=== PATIENT | male | born 1970 | race American Indian/Alaskan Native ===

== ENCOUNTER 2021-06-08 11:09 | Emergency (ER) | payer SELFPAY ==
[2021-06-08] MEDS ORDERED: ONDANSETRON 4 MG ODT TAB PO ONE (17:12)
--- NOTE | 2021-06-08 17:17 | Emergency Department Report ---
HPI - General Chief Complaint: Overdose Time Seen by Provider: 06/08/21 17:01 - [facility] HPI: Room 24 The patient is a 50-year-old male present with a chief complaint of overdose. Patient is is amnestic for the event but states he remembers being in the bat hroom of his own home. Patient was found unresponsive by another person in the house and 9 1 was called. Per EMS the patient had a GCS of 3 and was known to take heroin in the past. Patient was given Narcan and awakened and began yelling. Patient is currently calm and only complains of some nausea. ED Past Medical Hx - Past Medical History Previous Medical History?: No - Surgical History Past Surgical History?: No - Family History Family history: no significant - Social History Smoking Status: Current Every Day Smoker (1/3 pack/day) Substance Use Type: Cocaine - Medications Home Medications: Home Medications Medication Instructions Recorded Confirmed Last Taken Type Divalproex Dr [DepaKOTE DR] 125 mg PO BID #60 tablet 06/11/21 Unknown Rx Escitalopram [Lexapro] 5 mg PO QDAY #30 06/11/21 Unknown Rx OLANZapine [Olanzapine] 5 mg PO DAILY #30 06/11/21 Unknown Rx hydrOXYzine HCL [Atarax] 25 mg PO BID PRN #60 tablet 06/11/21 Unknown Rx traZODone [Desyrel] 50 mg PO QHS #30 tab 06/11/21 Unknown Rx ED Review of Systems ROS: Stated complaint: OVERDOSE Other details as noted in HPI Constitutional: no symptoms reported Eyes: denies: eye pain ENT: denies: throat pain Respiratory: no symptoms reported Cardiovascular: denies: chest pain Endocrine: no symptoms reported Gastrointestinal: nausea Genitourinary: denies: dysuria Musculoskeletal: denies: back pain Physical Exam - Physical Exam Vital Signs: Vital Signs 06/08/21 11:13 Pulse Rate 77 Blood Pressure 114/82 [Right] Physical Exam: GENERAL: The patient is well-developed well-nourished male lying on stretcher not appearing to be in acute distress. [] HEENT: Normocephalic. Atraumatic. Extraocular motions are intact. Patient has moist mucous membranes. NECK: Supple. Trachea midline CHEST/LUNGS: Clear to auscultation. There is no respiratory distress noted. HEART/CARDIOVASCULAR: Regular. There is no tachycardia. There is no gallop rub or murmur. ABDOMEN: Abdomen is soft, nontender. Patient has normal bowel sounds. There is no abdominal distention. SKIN: There is no rash. There is no edema. There is no diaphoresis. NEURO: The patient is awake, alert, and oriented. The patient is cooperative. The patient has no focal neurologic deficits. The patient has normal speech. GCS 15 MUSCULOSKELETAL: There is no evidence of acute injury. ED Course Vital Signs 06/08/21 11:13 Pulse Rate 77 Blood Pressure 114/82 [Right] ED Medical Decision Making - Lab Data Result diagrams: 06/08/21 17:24 06/08/21 17:24 - Differential Diagnosis Opiate overdose Critical care attestation.: If time is entered above; I have spent that time in minutes in the direct care of this critically ill patient, excluding procedure time. ED Disposition Clinical Impression: Heroin overdose Disposition: 01 HOME / SELF CARE / HOMELESS Is pt being admited?: No Does the pt Need Aspirin: No Condition: Stable Instructions: Intentional Drug Overdose Additional Instructions: Professional and Agency Contacts To help Resolve Crises(18/11) [place] Crisis Line: Suicide Prevention Line: Crisis Text Line: Text START to 298090 Emergency: 911 Outpatient COMMUNITY Behavioral Health Resources: [facility]: [facility] [address] [place], [place] [address] [facility] [address] [place] [address] [facility] - [address] [place] [address] Friday thru Friday - 8am - 5pm [place]: [facility] Address: [address], [place] [address] [facility] Address: [address] [place] [address] Friday thru Friday- 7am-2pm [facility] Address: [address] [place] [address] Friday thru Friday: 8:30AM-5PM In case of an emergency, please contact the following numbers: [place] Crisis and Access Line: Number: Crisis Text Line: (Text START) Number: 531633 Suicide Prevention Line: Number: Emergency Number: 911 SUBSTANCE ABUSE PROGRAMS: [facility]: Location: [place], [place] [facility] Address: [address] [place] [address] [facility]: Address: [address] [place] [address] [facility]: Address: [address] [place] [address] [facility]: Address: [address] [place] [address] [facility] Address: [address] [place] [id number]. Please contact above numbers to attempt placement into free based program. Medicaid Programs: [facility]: Address: [address] [place] [address] [facility]: Address: [address] [place] [address] OUTPATIENT MENTAL HEALTH RESOURCES [facility], [address] [place] [address] [facility] Kassandra Mcdowell MD: [address] [facility] [address] [place], [place] [id number] [facility]: [address] [place], [place] [id number] [employer] [facility] [place], [place] [id number] [phone] [facility]: [address] [facility] [address] [place], [place] [id number] [facility]: [address] [facility] Kian. [facility] [id number] [facility]: [address] [place] [address] Nathan [place] MD: [address] [facility] [place] [address] [facility]: [address] [place] [place] [address] [phone] [place] CRISIS AND ACCESS LINE: * Prescriptions: hydrOXYzine HCL [Atarax] 25 mg PO BID PRN #60 tablet PRN Reason: Itching Divalproex Dr [DepaKOTE DR] 125 mg PO BID #60 tablet traZODone [Desyrel] 50 mg PO QHS #30 tab Escitalopram [Lexapro] 5 mg PO QDAY #30 OLANZapine [Olanzapine] 5 mg PO DAILY #30 Referrals: PRIMARY CARE, [Primary Care Provider] - 3-5 Days
[2021-06-08 18:07] LABS: Creatine Kinase MB 11.4 ng/mL (0.0-4.0)
[2021-06-08 18:16] LABS: BUN/Creatinine Ratio 20; Blood Urea Nitrogen 16 mg/dL (9-20); Calcium 8.7 mg/dL (8.4-10.2); Hemolysis Index 28
[2021-06-08 18:18] LABS: Hematocrit 40.9 % (35.5-45.6); Hemoglobin 13.4 gm/dl (11.8-15.2); Mean Corpuscular HGB Conc 33 % (32-34); Mean Corpuscular Volume 101 fl (84-94); Platelet Count 414 K/mm3 (140-440); Red Blood Count 4.06 M/mm3 (3.65-5.03)
[2021-06-08 19:16] LABS: Basophils % (Manual) 0 % (0.0-1.8); Eosinophils % (Manual) 0 % (0.0-4.3); Macrocytosis 1+; Platelet Estimate Consistent w Auto; Total Cells Counted 100
[2021-06-09 00:11] LABS: Bilirubin,Urine NEG (Negative); Blood,Urine NEG (Negative); Color,Urine Yellow (Yellow); Mucus,Urine FEW /HPF; Protein,Urine <15 mg/dL mg/dL (Negative)
[2021-06-09 00:20] LABS: Amphetamine Screen,Urine PRESUMPTIVE NEGATIVE; Benzodiazepines Screen,Urine PRESUMPTIVE NEGATIVE; Cannabinoid Screen,Urine PRESUMPTIVE POSITIVE; Cocaine Screen,Urine PRESUMPTIVE POSITIVE; Methadone Screen,Urine PRESUMPTIVE NEGATIVE; Opiate Screen,Urine PRESUMPTIVE NEGATIVE
--- NOTE | 2021-06-09 10:07 | Consultation ---
History of Present Illness - Reason for Consult Consult date: 06/09/21 Reason for consult: detox, depression - History of Present Psychiatric Illness The patient was seen today. He is a 50y/o male patient who was found unresponsive in his bathroom. The patient doesn't remember a lot about what happened. During my evaluation he is calm and cooperative. He makes minimal eye contact. He verbalized feeling very depressed. He admits to using heroine. He says "I've been in a christine all my life." When asked was he suicidal, the patient replied "I'm afraid to answer that question." He verbalizes hearing negative voices telling him he is worthless and to kill himself. The patient is requesting detox. PAST PSYCHIATRIC HISTORY: Diagnoses: schizophrenia, depression Suicide attempts or Self-harm behavior: Denies Prior psychiatric hospitalizations: yes Substance Abuse history: heroine Previous psychiatric medications tried: could not recall Outpatient treatment: Yes PAST MEDICAL HISTORY: None reported Family Psychiatric History: None reported or documented SOCIAL HISTORY Marital Status: single Living Arrangements: homeless Employment Status: Disabled Access to guns/weapons: Denies Education: History of Abuse: Denies Legal History: Denies REVIEW OF SYSTEMS Constitutional: Negative for weight loss ENT: Negative for stridor Respiratory: Negative for cough or hemoptysis All other systems reviewed and are negative MENTAL STATUS EXAMINATION General Appearance and Behavior: Age appropriate, good hygiene, wearing appropriate clothes. cooperative Cooperation: Cooperative Psychomotor Behavior: Psychomotor normal Mood: depressed Affect and affective range: congruent with stated mood Thought Process: illogical Thought Content: hallucinations, SI Speech: Normal tone and pace Suicidal Ideation: Yes Homicidal Ideation: Denies Hallucinations: Yes Delusions: None elicited Impulse Control: Limited Insight and Judgment: limited insight and fair judgment Memory: Limited Attention: distracted Orientation: a/o x 3 Assessment (1) Major Depressive Disorder (2) Opioid Dependence Treatment Plan 1013 Olanzapine 5mg po daily Trazodone 50mg po qhs Depakote DR 125mg po BID Vistaril 25mg po BID Medical: per primary Disposition: recommend acute psychiatric inpatient treatment Will follow. Thanks Case staffed with Dr. [place] Medications and Allergies Allergies Allergy/AdvReac Type Severity Reaction Status Date / Time No Known Allergies Allergy Unverified 06/08/21 11:11 Mental Status Exam - Vital signs Last Vital Signs Temp 98.7 F 02/11/22 20:00 Pulse 77 06/09/21 06:46 Resp 13 06/09/21 06:46 BP 138/98 06/09/21 06:46 Pulse Ox 95 06/09/21 06:46 Results Result Diagrams: 06/08/21 17:24 06/08/21 17:24 Abnormal lab results 06/08/21 06/08/21 06/08/21 Range/Units 17:24 17:24 17:24 WBC 11.6 H (4.5-11.0) K/mm3 MCV 101 H (84-94) fl MCH 33 H (28-32) pg RDW 13.0 L (13.2-15.2) % Seg Neuts % (Manual) 96.0 H (40.0-70.0) % Lymphocytes % (Manual) 1.0 L (13.4-35.0) % Seg Neutrophils # Man 11.1 H (1.8-7.7) K/mm3 Lymphocytes # (Manual) 0.1 L (1.2-5.4) K/mm3 Carbon Dioxide 19 L (22-30) mmol/L Total Creatine Kinase (55-170) units/L CK-MB (CK-2) (0.0-4.0) ng/mL Salicylates < 0.3 L (2.8-20.0) mg/dL Acetaminophen (10.0-30.0) ug/mL 06/08/21 06/08/21 Range/Units 17:24 17:24 WBC (4.5-11.0) K/mm3 MCV (84-94) fl MCH (28-32) pg RDW (13.2-15.2) % Seg Neuts % (Manual) (40.0-70.0) % Lymphocytes % (Manual) (13.4-35.0) % Seg Neutrophils # Man (1.8-7.7) K/mm3 Lymphocytes # (Manual) (1.2-5.4) K/mm3 Carbon Dioxide (22-30) mmol/L Total Creatine Kinase 391 H (55-170) units/L CK-MB (CK-2) 11.4 H (0.0-4.0) ng/mL Salicylates (2.8-20.0) mg/dL Acetaminophen 5.0 L (10.0-30.0) ug/mL All other labs normal.
--- NOTE | 2021-06-09 11:07 | Electrocardiograph Report ---
[facility] Test Date: 2021-06-08 Test Time: 20:18:23 Pat Name: THAI LOBO Department: Room: Gender: M Grey Washer: FELIX : 1970 Requested By: CALI GEORGE Order Number: [id number] Reading MD: Jaswinder Schultz Measurements Intervals Center Rate: 74 P: 65 KS: 166 QRS: 48 QRSD: 91 T: 68 QT: 413 QTc: 457 Interpretive Statements Sinus arrhythmia Biatrial enlargement Probable left ventricular hypertrophy ST elev, probable normal early repol pattern No previous ECG available for comparison Electronically Signed On 06-09-2021 11:07:07 EST by Jaswinder Schultz
[2021-06-09] MEDS: DIVALPROEX DR 125 MG TAB PO SCH (11:29)
[2021-06-09] MEDS: hydrOXYzine PAMOATE 25 MG CAP PO SCH (11:29)
[2021-06-10] MEDS: hydrOXYzine PAMOATE 25 MG CAP PO SCH ×3 (00:13→22:00)
[2021-06-10] MEDS: DIVALPROEX DR 125 MG TAB PO SCH ×3 (00:13→22:00)
[2021-06-10] MEDS: traZODone 50 MG TAB PO SCH ×2 (00:13→22:00)
--- NOTE | 2021-06-10 09:43 | Progress Note ---
Subjective - Reason for Consult Consult date: 06/10/21 Reason for consult: Heroine use, SI - Chief Complaint Chief complaint: The patient was seen today. He still endorses SI. He denies having a plan. The patient says "I don't know what's going to happen after this." He verbalizes being very depressed. REVIEW OF SYSTEMS Constitutional: Negative for weight loss ENT: Negative for stridor Respiratory: Negative for cough or hemoptysis All other systems reviewed and are negative MENTAL STATUS EXAMINATION General Appearance and Behavior: Age appropriate, good hygiene, wearing appropriate clothes. cooperative Cooperation: Cooperative Psychomotor Behavior: Psychomotor normal Mood: depressed Affect and affective range: congruent with stated mood Thought Process: illogical Thought Content: hallucinations, SI Speech: Normal tone and pace Suicidal Ideation: Yes Homicidal Ideation: Denies Hallucinations: Yes Delusions: None elicited Impulse Control: Limited Insight and Judgment: limited insight and fair judgment Memory: Limited Attention: distracted Orientation: a/o x 3 Assessment (1) Major Depressive Disorder (2) Opioid Dependence Treatment Plan 1013 Start Lexapro 5mg po daily Olanzapine 5mg po daily Trazodone 50mg po qhs Depakote DR 125mg po BID Vistaril 25mg po BID Medical: per primary Disposition: recommend acute psychiatric inpatient treatment Will follow. Thanks Case staffed with Dr. [place] Mental Status Exam - Vital signs Last Vital Signs Temp 98.7 F 06/08/21 20:00 Pulse 84 06/10/21 08:04 Resp 14 06/10/21 08:04 BP 127/72 06/10/21 08:04 Pulse Ox 98 06/10/21 08:04
[2021-06-10] MEDS: ESCITALOPRAM 10 MG TAB PO SCH (11:07)
--- NOTE | 2021-06-10 11:31 | Event Note ---
Date: 06/10/21 assessed by [facility] , medically cleared , vss , recommned acute inpatient psych meds modified
--- NOTE | 2021-06-11 09:22 | Progress Note ---
Subjective - Reason for Consult Consult date: 06/11/21 Reason for consult: Detox, drug use - Chief Complaint Chief complaint: The patient was seen today. He is asking why he hasn't gone to detox. Explained the process to the patient. He says "I'm good" now. I really just needed detox. I explained to the patient that he had to have an excepting facility. He denies SI/HI or hallucinations of any kind. REVIEW OF SYSTEMS Constitutional: Negative for weight loss ENT: Negative for stridor Respiratory: Negative for cough or hemoptysis All other systems reviewed and are negative MENTAL STATUS EXAMINATION General Appearance and Behavior: Age appropriate, good hygiene, wearing appropriate clothes. cooperative Cooperation: Cooperative Psychomotor Behavior: Psychomotor normal Mood: good Affect and affective range: congruent with stated mood Thought Process: goal directed Thought Content: none Speech: Normal tone and pace Suicidal Ideation: Denies Homicidal Ideation: Denies Hallucinations: Denies Delusions: None elicited Impulse Control: Limited Insight and Judgment: limited insight and fair judgment Memory: Limited Attention: distracted Orientation: a/o x 3 Assessment (1) Major Depressive Disorder (2) Opioid Dependence Treatment Plan d/c 1013 Lexapro 5mg po daily Olanzapine 5mg po daily Trazodone 50mg po qhs Depakote DR 125mg po BID Vistaril 25mg po BID Medical: per primary Disposition: Do not recommend acute psychiatric inpatient treatment. The patient needs to abstain from all illicit drug use. The operations officer afloat to give the patient all necessary outpatient resources, including drug rehab. The operations officer afloat to further discuss safety plan Will sign off. Thanks Case staffed with Dr. [place] Mental Status Exam - Vital signs Last Vital Signs Temp 98.5 F 06/10/21 22:28 Pulse 65 06/10/21 22:28 Resp 18 06/10/21 22:28 BP 131/91 06/10/21 22:28 Pulse Ox 98 06/10/21 22:28
[2021-06-11] MEDS: hydrOXYzine PAMOATE 25 MG CAP PO SCH (10:12)
[2021-06-11] MEDS: DIVALPROEX DR 125 MG TAB PO SCH (10:13)
[2021-06-11] MEDS: ESCITALOPRAM 10 MG TAB PO SCH (10:13)
[2021-06-11 11:11] VITALS: BP 118/78
--- NOTE | 2021-06-11 15:39 | Event Note ---
Date: 06/11/21 Patient has been evaluated by our psychiatric team and advised to discharge patient home and follow-up as an outpatient. Patient denied any suicidal homicidal ideation. No visual or auditory hallucination. Patient is medically and psychiatrically stable for discharge.
== END 2021-06-11 16:54 | disposition home or self-care (01) ==
LOC: ED 11:09
DX: T40.2X1A Poisoning by other opioids, accidental (unintentional), initial encounter (principal); Z20.822 Contact with and (suspected) exposure to COVID-19; F17.210 Nicotine dependence, cigarettes, uncomplicated; F14.90 Cocaine use, unspecified, uncomplicated; Y92.89 Other specified places as the place of occurrence of the external cause
CPT/HCPCS: 36415; 80048; 80307; 81001; 82550; 82553; 84484; 85007; 85025; 93005; 93010; 99284; U0003; 80320; G0480